=== PATIENT | female | born 1975 | race Caucasian/White ===

== ENCOUNTER → 2016-08-11 | Outpatient (CLI) | payer OTHER | END | disposition home or self-care (01) | LOC: C.LABSPEC 12:12 | PROVIDERS: ATTEND Physician Assistant Medical | DX: J02.9 Acute pharyngitis, unspecified (principal) ==

== ENCOUNTER → 2017-11-13 | Outpatient (CLI) | payer OTHER ==
[~2017-11-13] MED LIST: MULT-506 PO
[2017-11-13 12:28] LABS: BASO % 0.9 %; BASO ABS # 0.04 K/uL (0-0.2); EOS % 0.7 %; EOS ABS # 0.03 K/uL (0-0.5); HEMATOCRIT 41.1 % (37-47); IG# 0.01 K/uL (0.00-0.02); LYMPH % 34.6 %; LYMPH ABS # 1.54 K/uL (1.2-3.4); MEAN CELL VOLUME 91.3 fL (80-100); MEAN CORPUSCULAR HEMOGLOBIN 31.1 pg (25-34); MEAN CORPUSCULAR HGB CONC 34.1 g/dl (32-36); MONO % 8.5 %; MONO ABS # 0.38 K/uL (0.11-0.59); NEUT % 55.1 %; NEUT ABS # 2.45 K/uL (1.4-6.5); PLATELET COUNT 225 K/uL (130-400); RED CELL DISTRIBUTION WIDTH CV 12.7 % (11.5-14.5); RED CELL DISTRIBUTION WIDTH SD 42.3 fL (36.4-46.3); WHITE BLOOD COUNT 4.45 K/uL (4.8-10.8)
[2017-11-13 12:35] LABS: POTASSIUM 4.1 mmol/L (3.5-5.1); PTT PATIENT 28.7 SECONDS (21.0-31.0)
== END | disposition home or self-care (01) ==
LOC: C.LABBFT 09:12
DX: Z01.818 Encounter for other preprocedural examination (principal)

== ENCOUNTER → 2017-11-24 | Day surgery (SDC) | payer OTHER ==
[2017-11-13 08:15] VITALS: Ht 152.4 cm; Wt 44.1 kg
[~2017-11-24] VITALS: Ht 152.4 cm; Wt 44.1 kg
[~2017-11-24] MED LIST changes: +ACETAMINOPHEN/HYDROCODONE ELIX 15 ML/CUP UDP PO PRN; +ATROPINE SULFATE 0.1 MG/ML 5ML SYR IV PRN; +BACITRACIN/POLYMYXIN B OINT 90 APPLN/28.4 GM TUBE EXT ONE; +DEXAMETHASONE SOD INJ 4 MG/ML VIAL ONE; +EpHEDrine SULFATE INJ 50 MG/ML AMP IV PRN; +FENTANYL CITRATE INJ 50 MCG/1 ML 2 ML VIAL IV PRN; +FENTANYL CITRATE INJ 50 MCG/1 ML 2 ML VIAL ONE; +LIDOCAINE 2% JELLY 5 ML TUBE ONE; +LIDOCAINE HCL 2% 2 ML VIAL (20MG/ML) ONE; +MIDAZOLAM HCL 1 MG/ML 2ML VIAL ONE; +ONDANSETRON INJ 2 MG/ML 2 ML VIAL IV PRN; +ONDANSETRON INJ 2 MG/ML 2 ML VIAL ONE; +PROPOFOL IV EMULSION 10 MG/ML 20 ML VIAL ONE; +SCOPOLAMINE 1.5 MG TDSY TD ONE
[2017-11-24] MEDS: LACTATED RINGER'S 1000ML 1,000 ML IV SCH ×2 (07:30→08:52)
--- NOTE | 2017-11-24 07:33 | History and Physical: Surg Cnt ---
History & Physical Date Nov 24, 2017. Chief Complaint CHRONIC TONSILLITIS History of Present Illness The patient is a 42 year old female with CHRONIC TONSILLITIS Past Medical/Surgical History PMH: ALLERGIC RHINITIS, NEPHROLITHIASIS, GI ULCER PSH: S/P DENTAL EXTRACTIONS Additional History Hepatic Disease: No Endocrine Disorder: No Kidney Disease: No Hypertension: No Heart Disease: No Bleeding Tendencies: No Infectious Diseases: No Allergies Coded Allergies: Iodine (Verified Allergy, Severe, ANAPHYLAXIS, 11/24/17) Shellfish (Verified Allergy, Severe, ANAPHYLAXIS, 11/24/17) Cephalosporins (Verified Allergy, Intermediate, WHOLE BODY HIVES, 11/24/17) Codeine (Verified Allergy, Unknown, UNKN, 11/24/17) Iodinated Diagnostic Agents (Verified Allergy, Unknown, HIVES, 11/24/17) Penicillins (Verified Adverse Reaction, Intermediate, PASSED OUT, 11/24/17) Home Medications Scheduled Multivitamin (Multivitamin), 1 TAB PO DAILY Physical Examination Skin: warm/dry, no rash Eyes: normal inspection, EOMI, sclerae normal ENT: + pertinent finding (1-2+ CRYPTIC ENDOPHYTIC TONSILS ) Head: normocephalic, atraumatic Neck: supple, no adenopathy, trachea midline Respiratory/Chest: lungs clear, normal breath sounds, no respiratory distress Cardiovascular: regular rate, rhythm, no edema, no murmur Neurologic/Psych: no motor/sensory deficits, alert, normal reflexes, oriented x 3 Diagnosis CHRONIC TONSILLITIS Plan of Treatment TONSILLECTOMY
--- NOTE | 2017-11-24 08:09 | [facility] Operative Report ---
Operative Report Operative Date Nov 24, 2017. Pre-Operative Diagnosis Chronic Tonsillitis Post-Operative Diagnosis Same Procedure(s) Performed Tonsillectomy Surgeon Dr. Burrell Field Laboratory Operator Surgeon(s) None Estimated Blood Loss 25 ml Findings 1-2+ CRYPTIC ENDOPHYTIC TONSILS WITH L>R TONSILLITH FORMATION Specimens A. Right Tonsil B. Left Tonsil Anesthesia Type General I attest to the content of the Intraoperative Record and any orders documented therein. Any exceptions are noted below.
--- NOTE | 2017-11-24 08:35 | OPERATIVE REPORT ---
DATE OF OPERATION: 11/24/2017 PREOPERATIVE DIAGNOSIS: Chronic tonsillitis. POSTOPERATIVE DIAGNOSIS: Chronic tonsillitis. PROCEDURE: Bilateral tonsillectomy. SURGEON: Pa Burrell MD. ANESTHESIA: General endotracheal. ESTIMATED BLOOD LOSS: 25 mL FINDINGS: 1-2+ cryptic endophytic tonsils bilaterally with excessive left greater than right tonsillith formation. SPECIMENS: Right and left tonsil sent separately for permanent pathologic assessment. COMPLICATIONS: None. INDICATIONS FOR THE PROCEDURE: The patient is a 42-year-old female with the above-mentioned history who presents for the above-mentioned procedure on an outpatient elective basis. DESCRIPTION OF PROCEDURE: After informed consent had been obtained from the patient, the patient was wheeled to the operating room and placed on the operating table in the supine position. Monitors were placed. After induction of general endotracheal anesthesia, the table was turned 90 degrees and the patient's head and neck were gently extended. Antibiotic ointment was applied. The lips and the mouth gag was carefully inserted, opened, and stabilized on a roll of towels. The palate was inspected and was found to be normal. An Allis clamp was then used to grasp the right tonsil in the superior pole and Bovie electrocautery was used to remove the tonsil in a capsular plane with care to preserve the underlying mucosa and musculature of the anterior and posterior tonsillar pillars. The left tonsil was then removed in a similar fashion. Intraoperative findings were 1-2+ cryptic endophytic tonsils bilaterally with excessive tonsillith information that was worse on the left hand side. There was significant inflammation that was worse on the right hand side requiring a generous amount of suction Bovie electrocautery to stop bleeding on the right side. The oral cavity and oropharynx were then irrigated and suctioned. Hemostasis was confirmed. An orogastric tube was placed and the stomach was suctioned free of air and stomach contents. The mouth gag was released for 1 minute. This was reopened and hemostasis was once again confirmed. 2% lidocaine jelly was placed in the bilateral tonsillar fossae for added anesthetic effect. This marked the end of the case. The patient tolerated the procedure well. There were no apparent complications. The patient was extubated and transferred to recovery room in stable condition. I attest to the content of the Intraoperative Record and any orders documented therein. Any exception s are noted below.
--- NOTE | 2017-11-24 09:26 | Discharge Instructions ---
Discharge Instructions Date of Service Nov 24, 2017. Admission Reason for Admission: Chronic Tonsillitis Discharge Discharge Diagnosis / Problem: SAME Discharge Goals Goal(s): Therapeutic intervention Activity Recommendations Activity Limitations: as noted below LIGHT ACTIVITY FOR 2 WEEKS; NO DRIVING WHILE ON HYDROCODONE . Current Hospital Diet Patient's current hospital diet: Full Liquid Diet Discharge Diet Recommended Diet: Full Liquid Diet Diet Texture: Mechanical Soft (ground) Procedures Procedures Performed: Tonsillectomy Pending Studies Studies pending at discharge: no Medical Emergencies . Who to Call and When: Medical Emergencies: If at any time you feel your situation is an emergency, please call 911 immediately. . Non-Emergent Contact Non-Emergency issues call your: Surgeon . . "Provider Documentation" section prepared by Pa Burrell. .
--- NOTE | 2017-11-24 09:50 | Anesthesia Progress Nt - [facility] ---
Anesthesia Post Op Note Date & Time Nov 24, 2017 at 09:50 Vital Signs Pain Intensity: 2 Vital Signs Past 12 Hours Date Time Temp Pulse Resp B/P (MAP) Pulse Ox O2 Delivery O2 Flow Rate FiO2 11/24/17 09:26 36.2 66 22 130/88 (102) 97 Room Air 11/24/17 09:18 67 16 97 11/24/17 09:18 67 16 11/24/17 09:16 130/79 11/24/17 09:15 36.7 70 13 130/79 98 Room Air 11/24/17 09:13 65 18 11/24/17 09:13 62 18 100 11/24/17 09:11 124/78 11/24/17 09:08 59 11 11/24/17 09:08 60 11 99 11/24/17 09:06 113/78 11/24/17 09:03 58 13 100 11/24/17 09:03 58 13 11/24/17 09:02 59 17 11/24/17 09:02 59 17 100 11/24/17 09:01 119/76 11/24/17 08:57 62 22 100 11/24/17 08:57 61 22 11/24/17 08:56 112/78 11/24/17 08:52 57 10 11/24/17 08:52 57 10 100 11/24/17 08:51 113/74 11/24/17 08:47 57 22 100 11/24/17 08:47 57 22 11/24/17 08:46 110/76 11/24/17 08:42 58 12 11/24/17 08:42 58 12 100 11/24/17 08:41 110/75 11/24/17 08:37 60 15 100 11/24/17 08:37 58 15 11/24/17 08:36 108/73 11/24/17 08:32 56 11 100 11/24/17 08:32 56 11 11/24/17 08:31 106/74 11/24/17 08:29 108/75 11/24/17 08:28 36.1 59 12 108/75 100 Humidified Oxygen 6 Mask 11/24/17 07:17 37.1 58 18 124/79 (94) 100 Room Air Notes Mental Status: alert / awake / arousable, participated in evaluation Pt Amnestic to Procedure: Yes Nausea / Vomiting: adequately controlled Pain: adequately controlled Airway Patency, RR, SpO2: stable & adequate BP & HR: stable & adequate Hydration State: stable & adequate Anesthetic Complications: no major complications apparent
[2017-11-24 10:13] VITALS: BP 135/81; PULSE 60; TEMP 36.9; O2SAT 99
== END | disposition home or self-care (01) ==
LOC: X.SURG 06:56
DX: J35.1 Hypertrophy of tonsils (principal); Z87.442 Personal history of urinary calculi; Z88.0 Allergy status to penicillin; Z88.5 Allergy status to narcotic agent; Z88.1 Allergy status to other antibiotic agents; Z91.013 Allergy to seafood; Z91.041 Radiographic dye allergy status